=== PATIENT | male | born 1990 | race Caucasian/White ===

== ENCOUNTER 2016-07-16 20:15 | Inpatient (IN) | payer OTHER ==
[2016-07-16] MEDS ORDERED: ACETAMINOPHEN 325 MG TABLET PO ONE (21:14)
--- NOTE | 2016-07-16 21:17 | ER Document Report ---
ED Medical Screen (RME) - General Stated Complaint: LOWER BACK PAIN Mode of Arrival: Ambulatory Information source: Patient Notes: Patient has a tender red area swollen area to what pt describes as likely perineal raphe for the past 3 days. Patient with fever today. Patient denies any blood in the stool, abdominal pain or scrotal tenderness. hx: Diabetes I have greeted and performed a rapid initial assessment of this patient. A comprehensive ED assessment and evaluation of the patient, analysis of test results and completion of the medical decision making process will be conducted by additional ED providers. TRAVEL OUTSIDE OF THE [place] IN LAST 30 DAYS: No - Related Data Allergies/Adverse Reactions: No Known Allergies Allergy (Unverified 07/16/16 21:11) Physical Exam - Vital signs Vitals: Temp Pulse Resp BP Pulse Ox 102.6 F H 131 H 18 130/68 H 97 07/16/16 20:58 07/16/16 20:58 07/16/16 20:58 07/16/16 20:58 07/16/16 20:58 - Cardiovascular Rhythm: Tachycardia Heart sounds: S1 appreciated Murmur: No Course - Vital Signs Vital signs: Temp Pulse Resp BP Pulse Ox 102.6 F H 131 H 18 130/68 H 97 07/16/16 20:58 07/16/16 20:58 07/16/16 20:58 07/16/16 20:58 07/16/16 20:58
[2016-07-16] MEDS ORDERED: PIPERACILLIN/TAZOBACTAM 3.375 GM VIAL IV ONE (22:42)
[2016-07-16] MEDS ORDERED: VANCOMYCIN HCL INJ 1000 MG VIAL IV ONE (22:43)
[2016-07-16] MEDS ORDERED: NORMAL SALINE 1000 ML 1,000 ML IV ONE (22:46)
--- NOTE | 2016-07-16 22:50 | ER Document Report ---
ED General - General Chief Complaint: Abscess Stated Complaint: LOWER BACK PAIN Mode of Arrival: Ambulatory Notes: Patient is a 26 show male presents for complaint of redness and swelling to the perineal region with redness and swelling going into the scrotal sac. No history of anal intercourse. He did start having fevers today. He first noticed a little bit of redness on Tuesday. Last oral intake was at 2 PM. He denies history of anal intercourse. He is a type II diabetic. TRAVEL OUTSIDE OF THE [place] IN LAST 30 DAYS: No - Related Data Allergies/Adverse Reactions: No Known Allergies Allergy (Unverified 07/16/16 21:11) Past Medical History - General Information source: Patient - Social History Smoking Status: Current Every Day Smoker Frequency of alcohol use: None Drug Abuse: None Family History: Reviewed & Not Pertinent Renal/ Medical History: Denies: Hx Peritoneal Dialysis Review of Systems - Review of Systems Notes: My Normal Review Basic REVIEW OF SYSTEMS: CONSTITUTIONAL : Fever RESPIRATORY: Denies cough, cold, or chest congestion. Denies shortness of breath, difficulty breathing, or wheezing. GASTROINTESTINAL: Denies abdominal pain. Denies nausea, vomiting, or diarrhea. Denies constipation. Last BM: GENITOURINARY: Redness and swelling to the perineal general area. MUSCULOSKELETAL: Denies neck or back pain or joint pain or swelling. SKIN: Denies rash or skin lesions. NEUROLOGICAL: Denies altered mental status or loss of consciousness. Denies headache. Denies weakness or paralysis or loss of use of either side. Denies problems with gait or speech. Denies sensory or motor loss. ALL OTHER SYSTEMS REVIEWED AND NEGATIVE. Physical Exam - Vital signs Vitals: Temp Pulse Resp BP Pulse Ox 102.6 F H 131 H 18 130/68 H 97 07/16/16 20:58 07/16/16 20:58 07/16/16 20:58 07/16/16 20:58 07/16/16 20:58 - Notes Notes: General Appearance: Well nourished, alert, cooperative, no acute distress, mild to moderate obvious discomfort. Vitals: reviewed, See vital signs table. Head: no swelling or tenderness to the head Eyes: PERRL, EOMI, Conjuctiva clear Mouth: No decreasd moisture Lungs: No wheezing, No rales, No rhonci, No accessory muscle use, good air exchange bilaterally. Heart: Tachycardic rate, Regular rythm, No murmur, no rub Abdomen: Normal BS, soft, No rigidity, No abdominal tenderness, No guarding, no rebound, no abdominal masses, no organomegaly Genital: Very large swollen red area to the perineal area consistent with a large perineal abscess. Redness extending into the scrotal sac causing swelling to the scrotal sac. No swelling and penile shaft. The swelling into this pubic suprapubic area. No crepitus to palpation Extremities: strength 5/5 in all extremities, good pulses in all extremities, no swelling or tenderness in the extremities, no edema. Skin: warm, dry, appropriate color, no rash Neuro: speech clear, oriented x 3, normal affect, responds appropriately to questions. Course - Re-evaluation Re-evalutation: 07/16/16 22:46 Immediately after seeing the patient I called the general surgeon, Dr. Tang, who agrees to come to the patient immediately and most likely taken to the operating room for surgical intervention. Patient informed of plan he is able to. Patient's last oral intake was around 2 PM. Patient is nothing by mouth. An approximate ordered. Nursing staff made aware. - Vital Signs Vital signs: Temp Pulse Resp BP Pulse Ox 102.6 F H 131 H 18 130/68 H 97 07/16/16 20:58 07/16/16 20:58 07/16/16 20:58 07/16/16 20:58 07/16/16 20:58 Discharge - Discharge Clinical Impression: Abscess of perineum Condition: Stable Disposition: ADMITTED INPATIENT Admitting Provider: Surgicalist Unit Admitted: OR
[2016-07-16] MEDS ORDERED: LIDOCAINE 2% INJ-PF (20 MG/ML) 10 ML AMPUL ONE (23:14)
[2016-07-16] MEDS ORDERED: DEXAMETHASONE SOD PHOSPHATE INJ 4 MG/1 ML VIAL ONE (23:14)
[2016-07-16] MEDS ORDERED: HYDROMORPHONE HCL INJ/PF 2 MG/ML AMPULE ONE (23:14)
[2016-07-16] MEDS ORDERED: MIDAZOLAM 2 MG/2 ML INJ ONE (23:14)
[2016-07-16] MEDS ORDERED: ONDANSETRON HCL INJ/PF 4 MG/2 ML SDV ONE (23:14)
[2016-07-16] MEDS ORDERED: PROPOFOL INJ 200 MG/20 ML VIAL IV ONE (23:15)
[2016-07-16] MEDS ORDERED: ACETAMINOPHEN 100 ML IV ONE (23:15)
[2016-07-16 23:23] LABS: VENOUS BLOOD BASE EXCESS -0.3 mmol/L; VENOUS BLOOD HCO3 22.9 mmol/L (20-32); VENOUS BLOOD PCO2 33.5 mmHg (35-63); VENOUS BLOOD PH 7.45 (7.30-7.42)
[2016-07-16 23:32] LABS: PROTHROMBIN TIME 14.9 SEC (11.4-15.4)
[2016-07-16 23:36] LABS: ALANINE AMINOTRANSFERASE 33 U/L (21-72); ALBUMIN 3.9 g/dL (3.5-5.0); ALKALINE PHOSPHATASE 96 U/L (38-126); ANION GAP 15 (5-19); ASPARTATE AMINO TRANSFERASE 24 U/L (17-59); BILIRUBIN,TOTAL 1.5 mg/dL (0.2-1.3); BLOOD UREA NITROGEN 9 mg/dL (7-20); CALCIUM 9.5 mg/dL (8.4-10.2); CARBON DIOXIDE 22 mmol/L (22-30); CHLORIDE 92 mmol/L (98-107); CREATININE RESULT 0.63 mg/dL (0.52-1.25); SODIUM 128.6 mmol/L (137-145); TOTAL PROTEIN 7.1 g/dL (6.3-8.2)
[2016-07-16 23:49] LABS: GLUCOSE 442 mg/dL (75-110)
[2016-07-16 23:51] LABS: HEMATOCRIT 42.3 % (37.9-51.0); HEMOGLOBIN 14.6 g/dL (13.5-17.0); HGB HCT DIFFERENCE 1.5; MEAN CORPUSCULAR HEMOGLOBIN 30.6 pg (27.0-33.4); MEAN CORPUSCULAR HGB CONC 34.5 g/dL (32.0-36.0); MEAN CORPUSCULAR VOLUME 89 fl (80-97); RED BLOOD COUNT 4.77 10^6/uL (4.35-5.55); RED CELL DISTRIBUTION WIDTH 13.2 % (11.5-14.0)
[2016-07-16 23:56] LABS: BAND NEUTROPHILS % (MANUAL) 5 % (3-5); BASOPHILS % (MANUAL) 0 % (0-2); EOSINOPHILS % (MANUAL) 0 % (0-6); LYMPHOCYTES % (MANUAL) 12 % (13-45); TOTAL CELLS COUNTED 100; TOXIC GRANULATION 1+; TOXIC VACUOLATION PRESENT
[2016-07-16 23:57] LABS: OVALOCYTES SLIGHT; POIKILOCYTOSIS SLIGHT; POLYCHROMASIA SLIGHT; ROULEAUX SLIGHT
[2016-07-17] MEDS ORDERED: INSULIN REG, HUMAN 100 UNIT/ML 3 ML VIAL (PYX) ONE ×2 (00:06→05:30)
[2016-07-17] MEDS ORDERED: ONDANSETRON HCL INJ/PF 4 MG/2 ML SDV IV PRN (00:37)
[2016-07-17] MEDS ORDERED: PROMETHAZINE HCL INJ 25 MG/1 ML VIAL IV PRN ×2 (00:37)
[2016-07-17] MEDS ORDERED: MORPHINE SULFATE 10 MG/ML INJ IV PRN (00:37)
[2016-07-17] MEDS ORDERED: FENTANYL CITRATE INJ/PF 100 MCG/2 ML AMPUL IV PRN ×3 (00:37)
[2016-07-17] MEDS ORDERED: MEPERIDINE HCL/PF INJ 25 MG/1 ML DISP.SYRIN IV PRN (00:37)
[2016-07-17] MEDS ORDERED: OXYCODONE-ACETAMINOPHEN 5-325 MG TABLET PO PRN ×2 (00:37)
[2016-07-17] MEDS ORDERED: DIPHENHYDRAMINE HCL 50 MG/ML VIAL IV PRN (00:37)
--- NOTE | 2016-07-17 02:28 | OPERATIVE REPORT E ---
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 PREOPERATIVE DIAGNOSIS: Severe perineal necrotizing infection with a large perineal abscess. POSTOPERATIVE DIAGNOSIS: Necrotizing perineal soft tissue infection with perineal abscess. OPERATION: Incision and drainage of the large perineal abscess with debridement of necrotic tissue in the perineum, sparing the sphincter muscles. SURGEON: PIETER MILLER M.D. ANESTHESIA: General. ESTIMATED BLOOD LOSS: None. HISTORY AND INDICATION: The patient is a 26-year-old male presented to the emergency room with history of several days of increasing pain and swelling in the perineal area and he is also diabetic with uncontrolled blood sugar. History and indication is as described. DESCRIPTION OF PROCEDURE: The patient was placed in the Trendelenburg position. The perianal area was cleaned and draped as a sterile field. He was given intravenous therapeutic antibiotics. He was given insulin to regulate his blood sugar, which was 400+ and after keeping the patient in the lithotomy position, area was cleaned and draped and then 2 counter incisions were made in the perineum, one on the left lateral, other one on the right lateral, approximately 3 cm away from the anal verge, sparing the sphincter muscles completely and the large abscess cavity predominantly on the left side was drained. Copious amount of pus was drained along with that all the gas bubbles encountered as part of the gas gangrene and the surrounding necrotic adipose tissue was debrided until the wound was looking healthier and then entire wound was irrigated copiously with a counter incision on the right side of perineum made, through which a Marisa drain was placed. Wound was copiously irrigated until the effluent was clear and then dressings were applied. Patient was stable throughout the operation, recovered without any problem. Still there was , but relatively much stable. We will admit him to ICU monitored unit for close monitoring of blood sugar management. He will have a medical consult for diabetes medical management. DICTATING PHYSICIAN: PIETER MILLER M.D. [id number] PHY#: [id number] ID: [id number] JOB#: [id number] ACCT: [id number] cc:PIETER MILLER M.D. > PARAMJIT
[2016-07-17] MEDS ORDERED: HYDROMORPHONE HCL INJ/PF 2 MG/ML AMPULE IV PRN (02:29)
[2016-07-17] MEDS ORDERED: PIPERACILLIN/TAZOBACTAM 3.375 GM VIAL IV SCH (02:30)
[2016-07-17] MEDS ORDERED: ACETAMINOPHEN 325 MG TABLET PO PRN (02:33)
--- NOTE | 2016-07-17 03:03 | HISTORY AND PHYSICAL E ---
History and Physical NAME: NIKKI PECK : 1990 AGE: 26Y ADMITTED: 07/16/2016 ROOM: ED02 HISTORY OF PRESENT ILLNESS: The patient is presenting with a history of acute onset of severe pain in the perineum area almost like a week's duration and for the last 1 week, he has been developing increasing swelling and pain and came to emergency room today. No history of perirectal abscess in the past. He denies any urinary symptoms in the past. PAST MEDICAL HISTORY: Positive for diabetes, on metformin. FAMILY HISTORY: Nothing relevant. PERSONAL HISTORY: Occasional smoker. No alcohol abuse. PHYSICAL EXAMINATION: General: He does look sick with hydration. HEENT: No icterus. Head and neck examination, no lymphadenopathy. No masses. RESPIRATORY EXAMINATION: Both lungs are clear to auscultation. CARDIOVASCULAR EXAMINATION: Heart sounds are regular. No murmurs or gallops. ABDOMINAL EXAMINATION: Soft and nontender. No mass palpable. No hernia. EXTREMITIES: Warm and well perfused. PERINEAL EXAMINATION: There is a gross amount of scrotal edema on the perineum anterior perirectal area with large amount of induration, swelling, pain, and some degree of fluctuance present. IMPRESSION: Overall, he has a large perirectal abscess and perineal cellulitis. In setting of diabetes, we probably have necrotizing soft tissue infection. PLAN: IV antibiotics started instantly right away and then plan for emergency dbridement and incision and drainage. The patient and the patient's family were explained about indications of the procedure and the possibility of the recurrent abscesses, need for the repeat operation, long time for wound heal, and pain. All these issues explained. They understand and agree with plan of management. DICTATING PHYSICIAN: PIETER MILLER M.D. [id number] PHY#: [id number] ID: [id number] JOB#: [id number] ACCT: [id number] cc:NO Gian SHEN
[2016-07-17 04:00] LABS: HEMATOCRIT 40.4 % (37.9-51.0); HEMOGLOBIN 13.9 g/dL (13.5-17.0); HGB HCT DIFFERENCE 1.3; MEAN CORPUSCULAR HEMOGLOBIN 30.8 pg (27.0-33.4); MEAN CORPUSCULAR HGB CONC 34.4 g/dL (32.0-36.0); MEAN CORPUSCULAR VOLUME 89 fl (80-97); RED BLOOD COUNT 4.52 10^6/uL (4.35-5.55); RED CELL DISTRIBUTION WIDTH 13.1 % (11.5-14.0); WHITE BLOOD COUNT 17.2 10^3/uL (4.0-10.5)
[2016-07-17 04:03] LABS: ANION GAP 16 (5-19); BLOOD UREA NITROGEN 10 mg/dL (7-20); CALCIUM 8.8 mg/dL (8.4-10.2); CARBON DIOXIDE 19 mmol/L (22-30); CHLORIDE 97 mmol/L (98-107); CREATININE RESULT 0.69 mg/dL (0.52-1.25); POTASSIUM 4.6 mmol/L (3.6-5.0); SODIUM 132.3 mmol/L (137-145)
[2016-07-17 04:21] LABS: GLUCOSE 459 mg/dL (75-110)
[2016-07-17 04:29] LABS: BAND NEUTROPHILS % (MANUAL) 7 % (3-5); BASOPHILS % (MANUAL) 0 % (0-2); EOSINOPHILS % (MANUAL) 0 % (0-6); LYMPHOCYTES % (MANUAL) 12 % (13-45); POIKILOCYTOSIS SLIGHT; POLYCHROMASIA SLIGHT; TOTAL CELLS COUNTED 100; TOXIC GRANULATION SLIGHT
[2016-07-17 04:30] LABS: OVALOCYTES SLIGHT; ROULEAUX SLIGHT
[2016-07-17] MEDS ORDERED: DEXTROSE 40% GEL 15 GM TUBE PO PRN (05:37)
[2016-07-17] MEDS ORDERED: INSULIN REG, HUMAN 100 UNIT/ML 3 ML VIAL (PYX) SUBCUT PRN (05:37)
[2016-07-17] MEDS ORDERED: DEXTROSE 40% GEL 15 GM TUBE X 2 PO PRN (05:37)
[2016-07-17] MEDS ORDERED: DEXTROSE 50%-WATER SYRINGE 25 GM/50 ML DOSE IV PRN (05:37)
[2016-07-17] MEDS ORDERED: GLUCAGON,HUMAN RECOMB 1 MG INJ IM PRN (05:37)
[2016-07-17] MEDS ORDERED: DEXTROSE 50%-WATER SYRINGE 12.5 GM/25 ML DOSE IV PRN (05:37)
[2016-07-17] MEDS: OXYCODONE HCL IR 5 MG TABLET PO PRN ×2 (05:44→11:19)
[2016-07-17] MEDS ORDERED: PIPERACILLIN/TAZOBACTAM 3.375 GM VIAL IV ONE (05:54)
[2016-07-17 06:22] LABS: APPEARANCE,URINE CLEAR; BILIRUBIN,URINE NEGATIVE (NEGATIVE); GLUCOSE, URINE >=500 mg/dL (NEGATIVE); KETONES,URINE 20 mg/dL (NEGATIVE); LEUKOCYTE ESTERASE,URINE NEGATIVE (NEGATIVE); NITRITE,URINE NEGATIVE (NEGATIVE); PROTEIN,URINE 100 mg/dL (NEGATIVE); URINE SPECIFIC GRAVITY 1.031; UROBILINOGEN,URINE NEGATIVE mg/dL (<2.0)
[2016-07-17] MEDS: PIPERACILLIN SODIUM/TAZOBACTAM 3.375 GM in NORMAL SALINE 100 ML IV SCH ×2 (06:34→14:43)
[2016-07-17] MEDS: INSULIN REG, HUMAN 100 UNIT/ML 3 ML VIAL (PYX) SUBCUT PRN ×3 (06:48→17:11)
[2016-07-17] MEDS ORDERED: SUCCINYLCHOLINE CHLORIDE INJ 200 MG/10 ML VIAL ONE (11:29)
[2016-07-17] MEDS ORDERED: GLIMEPIRIDE 1 MG TABLET PO ONE (11:34)
--- NOTE | 2016-07-17 13:11 | PDOC PROGRESS REPORT ---
Subjective Progress Note for:: 07/17/16 Subjective:: feeling better Physical Exam Vital Signs: Temp Pulse Resp BP Pulse Ox 97.8 F 91 16 126/68 H 96 07/17/16 07:52 07/17/16 07:52 07/17/16 07:52 07/17/16 07:52 07/17/16 07:52 Intake & Output 07/16/16 07/17/16 07/18/16 06:59 06:59 06:59 Intake Total 240 Output Total 1800 Balance -1560 Weight 137.2 kg Rectal exam: PRESENT: other - perineal wound clean Results Laboratory Results: 07/17/16 03:38 07/17/16 03:38 07/17/16 07/17/16 07/17/16 03:38 03:38 03:38 WBC 17.2 H RBC 4.52 Hgb 13.9 Hct 40.4 MCV 89 MCH 30.8 MCHC 34.4 RDW 13.1 Plt Count 201 Seg Neutrophils % Not Reportable Lymphocytes % Not Reportable Monocytes % Not Reportable Eosinophils % Not Reportable Basophils % Not Reportable Absolute Neutrophils Not Reportable Absolute Lymphocytes Not Reportable Absolute Monocytes Not Reportable Absolute Eosinophils Not Reportable Absolute Basophils Not Reportable Sodium 132.3 L Potassium 4.6 Chloride 97 L Carbon Dioxide 19 L Anion Gap 16 BUN 10 Creatinine 0.69 Est GFR ( Amer) > 60 Est GFR (Non-Af Amer) > 60 Glucose 459 H* Lactic Acid 1.3 Calcium 8.8 Urine Color Urine Appearance Urine pH Ur Specific [place] Urine Protein Urine Glucose (UA) Urine Ketones Urine Blood Urine Nitrite Ur Leukocyte Esterase Urine WBC (Auto) Urine RBC (Auto) 07/17/16 05:40 WBC RBC Hgb Hct MCV MCH MCHC RDW Plt Count Seg Neutrophils % Lymphocytes % Monocytes % Eosinophils % Basophils % Absolute Neutrophils Absolute Lymphocytes Absolute Monocytes Absolute Eosinophils Absolute Basophils Sodium Potassium Chloride Carbon Dioxide Anion Gap BUN Creatinine Est GFR ( Amer) Est GFR (Non-Af Amer) Glucose Lactic Acid Calcium Urine Color YELLOW Urine Appearance CLEAR Urine pH 5.0 Ur Specific [place] 1.031 Urine Protein 100 H Urine Glucose (UA) >=500 H Urine Ketones 20 H Urine Blood SMALL H Urine Nitrite NEGATIVE Ur Leukocyte Esterase NEGATIVE Urine WBC (Auto) 1 Urine RBC (Auto) 1 Assessment & Plan - Plan Summary Plan Summary: Continue IV ABX Diabetes management.
--- NOTE | 2016-07-17 13:33 | PDOC CONSULTATION ---
Consultation Consult Date: 07/17/16 Attending physician:: SURGICAL SURGICALIST Consult reason:: To aid and diabetes management History of Present Illness Admission Date/PCP: 07/17/16 02:09 Patient complains of: Anal pain History of Present Illness: NIKKI PECK is a 26 year old past medical history of diabetes mellitus type II that presented to the emergency department with a complaint of redness and swelling to the perineal region with redness and swelling going into the scrotal sac. No history of anal intercourse. He did start having fevers today. He first noticed a little bit of redness on Tuesday. Last oral intake was at 2 PM. He is a type II diabetic. Patient was admitted to the surgical service and was taken to the OR. The patient's blood sugars have been very difficult to control since admission in the hospitalists have been consult did to aid in the management. Upon discussion with the patient he states that he is compliant with his metformin on the patient states that he only has a few pills left over the end of the month and therefore typically takes it. Shouldn't does not invest in much diet discretion however he states he takes his medications. The patient is leery of insulin however the patient's been placed on sliding scale for now. 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 Lives with: Family Smoking Status: Never Smoker Frequency of Alcohol Use: Rare Hx Recreational Drug Use: No Drugs: None Hx Prescription Drug Abuse: No - Advance Directive Resuscitation Status: Full Code Surrogate healthcare decision maker:: Rajat Gore his father Family History Family History: Reviewed & Not Pertinent Parental Family History Reviewed: Yes Children Family History Reviewed: Yes Sibling(s) Family History Reviewed.: Yes Medication/Allergy Home Medications: Metformin HCl 1,000 mg PO BID 07/16/16 Allergies/Adverse Reactions: No Known Allergies Allergy (Unverified 07/16/16 21:11) Review of Systems Constitutional: ABSENT: chills, fever(s), headache(s), weight gain, weight loss Eyes: ABSENT: visual disturbances Ears: ABSENT: hearing changes Cardiovascular: ABSENT: chest pain, dyspnea on exertion, edema, orthropnea, palpitations Respiratory: ABSENT: cough, hemoptysis Gastrointestinal: ABSENT: abdominal pain, constipation, diarrhea, hematemesis, hematochezia, nausea, vomiting Genitourinary: ABSENT: dysuria, hematuria Musculoskeletal: ABSENT: joint swelling Integumentary: ABSENT: rash, wounds Neurological: ABSENT: abnormal gait, abnormal speech, confusion, dizziness, focal weakness, syncope Psychiatric: ABSENT: anxiety, depression, homidical ideation, suicidal ideation Endocrine: ABSENT: cold intolerance, heat intolerance, polydipsia, polyuria Hematologic/Lymphatic: ABSENT: easy bleeding, easy bruising Physical Exam Vital Signs: Temp Pulse Resp BP Pulse Ox 97.8 F 91 16 126/68 H 96 07/17/16 07:52 07/17/16 07:52 07/17/16 07:52 07/17/16 07:52 07/17/16 07:52 Intake & Output 07/15/16 07/16/16 07/17/16 23:59 23:59 23:59 Intake Total 240 Output Total 1800 Balance -1560 Weight 137.2 kg General appearance: PRESENT: no acute distress, cooperative, well-developed, well-nourished Head exam: PRESENT: atraumatic, normocephalic Eye exam: PRESENT: conjunctiva pink, EOMI, PERRLA. ABSENT: scleral icterus Ear exam: PRESENT: normal external ear exam Mouth exam: PRESENT: moist, tongue midline Neck exam: ABSENT: carotid bruit, JVD, lymphadenopathy, thyromegaly Respiratory exam: PRESENT: clear to auscultation tc, symmetrical, unlabored. ABSENT: rales, rhonchi, tachypnea, wheezes Cardiovascular exam: PRESENT: RRR. ABSENT: diastolic murmur, rubs, systolic murmur Pulses: PRESENT: normal dorsalis pedis pul Vascular exam: PRESENT: normal capillary refill GI/Abdominal exam: PRESENT: normal bowel sounds, soft. ABSENT: distended, guarding, mass, organolmegaly, rebound, tenderness Rectal exam: PRESENT: deferred Extremities exam: PRESENT: full ROM. ABSENT: calf tenderness, clubbing, pedal edema Neurological exam: PRESENT: alert, awake, oriented to person, oriented to place , oriented to time, oriented to situation, CN II-XII grossly intact. ABSENT: motor sensory deficit Psychiatric exam: PRESENT: appropriate affect, normal mood. ABSENT: homicidal ideation, suicidal ideation Skin exam: PRESENT: dry, intact, warm. ABSENT: cyanosis, rash Results Laboratory Results: 07/17/16 03:38 07/17/16 03:38 07/17/16 07/17/16 07/17/16 03:38 03:38 03:38 WBC 17.2 H RBC 4.52 Hgb 13.9 Hct 40.4 MCV 89 MCH 30.8 MCHC 34.4 RDW 13.1 Plt Count 201 Seg Neutrophils % Not Reportable Lymphocytes % Not Reportable Monocytes % Not Reportable Eosinophils % Not Reportable Basophils % Not Reportable Absolute Neutrophils Not Reportable Absolute Lymphocytes Not Reportable Absolute Monocytes Not Reportable Absolute Eosinophils Not Reportable Absolute Basophils Not Reportable Sodium 132.3 L Potassium 4.6 Chloride 97 L Carbon Dioxide 19 L Anion Gap 16 BUN 10 Creatinine 0.69 Est GFR ( Amer) > 60 Est GFR (Non-Af Amer) > 60 Glucose 459 H* Lactic Acid 1.3 Calcium 8.8 Urine Color Urine Appearance Urine pH Ur Specific [place] Urine Protein Urine Glucose (UA) Urine Ketones Urine Blood Urine Nitrite Ur Leukocyte Esterase Urine WBC (Auto) Urine RBC (Auto) 07/17/16 05:40 WBC RBC Hgb Hct MCV MCH MCHC RDW Plt Count Seg Neutrophils % Lymphocytes % Monocytes % Eosinophils % Basophils % Absolute Neutrophils Absolute Lymphocytes Absolute Monocytes Absolute Eosinophils Absolute Basophils Sodium Potassium Chloride Carbon Dioxide Anion Gap BUN Creatinine Est GFR ( Amer) Est GFR (Non-Af Amer) Glucose Lactic Acid Calcium Urine Color YELLOW Urine Appearance CLEAR Urine pH 5.0 Ur Specific [place] 1.031 Urine Protein 100 H Urine Glucose (UA) >=500 H Urine Ketones 20 H Urine Blood SMALL H Urine Nitrite NEGATIVE Ur Leukocyte Esterase NEGATIVE Urine WBC (Auto) 1 Urine RBC (Auto) 1 Assessment & Plan - Diagnosis (1) Diabetes mellitus type 2 in obese Is this a current diagnosis for this admission?: YesPlan: Continues on scale coverage. Will resume the patient's metformin. Will add Amaryl. As likely the patient will require basal dose insulin. (2) Perineal abscess Is this a current diagnosis for this admission?: YesPlan: Management as per surgery - Time Time Spent: 50 to 70 Minutes Medications reviewed and adjusted accordingly: Yes Anticipated discharge: Home Within: within 24 hours, within 48 hours
[2016-07-17] MEDS: NORMAL SALINE 1000 ML 1,000 ML IV PRN (14:44)
[2016-07-17] MEDS ORDERED: NORMAL SALINE 1000 ML 1,000 ML IV ONE (15:00)
[2016-07-17] MEDS: METFORMIN HCL 500 MG TABLET PO SCH (16:35)
[2016-07-17] MEDS: GLIMEPIRIDE 4 MG TABLET PO SCH (16:36)
[2016-07-17] MEDS ORDERED: INSULIN REG, HUMAN 100 UNIT/ML 3 ML VIAL (PYX) IV ONE (16:55)
--- NOTE | 2016-07-17 19:30 | EKG REPORT ---
SEVERITY:- NORMAL ECG - SINUS RHYTHM : Confirmed by: Anna Kim MD 17-Jul-2016 19:29:09
[2016-07-18] MEDS: NORMAL SALINE 1000 ML 1,000 ML IV PRN ×2 (00:05→20:34)
[2016-07-18] MEDS: PIPERACILLIN SODIUM/TAZOBACTAM 3.375 GM in NORMAL SALINE 100 ML IV SCH ×4 (00:07→22:36)
[2016-07-18] MEDS: INSULIN REG, HUMAN 100 UNIT/ML 3 ML VIAL (PYX) SUBCUT PRN ×2 (00:09→07:01)
[2016-07-18] MEDS: OXYCODONE HCL IR 5 MG TABLET PO PRN ×2 (01:23→08:14)
[2016-07-18 04:49] LABS: ABSOLUTE LYMPHOCYTES (AUTO) 1.8 10^3/uL (0.5-4.7); ABSOLUTE MONOCYTES (AUTO) 0.9 10^3/uL (0.1-1.4); ABSOLUTE NEUT (AUTO) 11.3 10^3/uL (1.7-8.2); BASOPHILS % (AUTO) 0.1 % (0-2); HEMATOCRIT 37.1 % (37.9-51.0); HEMOGLOBIN 12.9 g/dL (13.5-17.0); HGB HCT DIFFERENCE 1.6; LYMPHOCYTES % (AUTO) 12.7 % (13-45); MEAN CORPUSCULAR HEMOGLOBIN 31.1 pg (27.0-33.4); MEAN CORPUSCULAR HGB CONC 34.7 g/dL (32.0-36.0); MEAN CORPUSCULAR VOLUME 90 fl (80-97); MONOCYTES % (AUTO) 6.2 % (3-13); RED BLOOD COUNT 4.14 10^6/uL (4.35-5.55); RED CELL DISTRIBUTION WIDTH 13.3 % (11.5-14.0)
[2016-07-18 04:51] LABS: ANION GAP 15 (5-19); BLOOD UREA NITROGEN 13 mg/dL (7-20); CALCIUM 8.9 mg/dL (8.4-10.2); CARBON DIOXIDE 19 mmol/L (22-30); CHLORIDE 98 mmol/L (98-107); CREATININE RESULT 0.48 mg/dL (0.52-1.25); GLUCOSE 302 mg/dL (75-110); MAGNESIUM 1.9 mg/dL (1.6-2.3); POTASSIUM 4.4 mmol/L (3.6-5.0); SODIUM 132.4 mmol/L (137-145)
[2016-07-18] MEDS: GLIMEPIRIDE 4 MG TABLET PO SCH ×2 (07:03→16:50)
[2016-07-18] MEDS: METFORMIN HCL 500 MG TABLET PO SCH ×2 (07:03→16:50)
[2016-07-18] MEDS ORDERED: NORMAL SALINE 1000 ML 1,000 ML IV ONE (11:00)
--- NOTE | 2016-07-18 11:28 | PDOC PROGRESS REPORT ---
Subjective Progress Note for:: 07/18/16 Subjective:: The patient states he is feeling better. The patient continued to have elevated sugars. Still reluctant to consider injectable insulin. Physical Exam Vital Signs: Temp Pulse Resp BP Pulse Ox 97.8 F 83 16 124/79 97 07/18/16 07:44 07/18/16 07:44 07/18/16 07:44 07/18/16 07:44 07/18/16 07:44 Intake & Output 07/16/16 07/17/16 07/18/16 23:59 23:59 23:59 Intake Total 2962 1300 Output Total 5800 2000 Balance -0184 -700 Weight 137.2 kg General appearance: PRESENT: no acute distress, cooperative, well-developed, well-nourished Head exam: PRESENT: atraumatic, normocephalic Eye exam: PRESENT: conjunctiva pink, EOMI, PERRLA. ABSENT: scleral icterus Ear exam: PRESENT: normal external ear exam Mouth exam: PRESENT: moist, tongue midline Neck exam: ABSENT: carotid bruit, JVD, lymphadenopathy, thyromegaly Respiratory exam: PRESENT: clear to auscultation tc, symmetrical, unlabored. ABSENT: rales, rhonchi, tachypnea, wheezes Cardiovascular exam: PRESENT: RRR. ABSENT: diastolic murmur, rubs, systolic murmur Pulses: PRESENT: normal dorsalis pedis pul Vascular exam: PRESENT: normal capillary refill GI/Abdominal exam: PRESENT: normal bowel sounds, soft. ABSENT: distended, guarding, mass, organolmegaly, rebound, tenderness Rectal exam: PRESENT: deferred Extremities exam: PRESENT: full ROM. ABSENT: calf tenderness, clubbing, pedal edema Neurological exam: PRESENT: alert, awake, oriented to person, oriented to place , oriented to time, oriented to situation, CN II-XII grossly intact. ABSENT: motor sensory deficit Psychiatric exam: PRESENT: appropriate affect, normal mood. ABSENT: homicidal ideation, suicidal ideation Skin exam: PRESENT: dry, intact, warm. ABSENT: cyanosis, rash Results Laboratory Results: 07/18/16 04:08 07/18/16 04:08 07/18/16 07/18/16 04:08 04:08 WBC 14.0 H RBC 4.14 L Hgb 12.9 L Hct 37.1 L MCV 90 MCH 31.1 MCHC 34.7 RDW 13.3 Plt Count 203 Seg Neutrophils % 81.0 H Lymphocytes % 12.7 L Monocytes % 6.2 Eosinophils % 0.0 Basophils % 0.1 Absolute Neutrophils 11.3 H Absolute Lymphocytes 1.8 Absolute Monocytes 0.9 Absolute Eosinophils 0.0 Absolute Basophils 0.0 Sodium 132.4 L Potassium 4.4 Chloride 98 Carbon Dioxide 19 L Anion Gap 15 BUN 13 Creatinine 0.48 L Est GFR ( Amer) > 60 Est GFR (Non-Af Amer) > 60 Glucose 302 H Calcium 8.9 Magnesium 1.9 Assessment & Plan - Diagnosis (1) Diabetes mellitus type 2 in obese Is this a current diagnosis for this admission?: YesPlan: Continues on scale coverage. Continue metformin. Added Amaryl. Will give another bolus. As likely the patient will require basal dose insulin. (2) Perineal abscess Is this a current diagnosis for this admission?: YesPlan: Management as per surgery - Time Time Spent with patient: 25-34 minutes Medications reviewed and adjusted accordingly: Yes Anticipated discharge: Home
[2016-07-18] MEDS: INSULIN LISPRO 100 UNIT/ML 3 ML VIAL SUBCUT PRN ×3 (12:32→22:37)
--- NOTE | 2016-07-18 13:56 | PDOC PROGRESS REPORT ---
Subjective Progress Note for:: 07/18/16 Physical Exam Vital Signs: Temp Pulse Resp BP Pulse Ox 97.6 F 83 16 119/74 96 07/18/16 12:57 07/18/16 12:57 07/18/16 12:57 07/18/16 12:57 07/18/16 12:57 Intake & Output 07/17/16 07/18/16 07/19/16 06:59 06:59 06:59 Intake Total 240 4022 222 Output Total 1800 6000 1500 Balance -1559 Weight 137.2 kg Results Laboratory Results: 07/18/16 04:08 07/18/16 04:08 07/18/16 07/18/16 04:08 04:08 WBC 14.0 H RBC 4.14 L Hgb 12.9 L Hct 37.1 L MCV 90 MCH 31.1 MCHC 34.7 RDW 13.3 Plt Count 203 Seg Neutrophils % 81.0 H Lymphocytes % 12.7 L Monocytes % 6.2 Eosinophils % 0.0 Basophils % 0.1 Absolute Neutrophils 11.3 H Absolute Lymphocytes 1.8 Absolute Monocytes 0.9 Absolute Eosinophils 0.0 Absolute Basophils 0.0 Sodium 132.4 L Potassium 4.4 Chloride 98 Carbon Dioxide 19 L Anion Gap 15 BUN 13 Creatinine 0.48 L Est GFR ( Amer) > 60 Est GFR (Non-Af Amer) > 60 Glucose 302 H Calcium 8.9 Magnesium 1.9 Assessment & Plan - Plan Summary Plan Summary: perineal swelling and cellulitis - resolved dc home when cleared by hospitalist.
--- NOTE | 2016-07-18 21:28 | DISCHARGE SUMMARY E ---
Discharge Summary NAME: NIKIK PECK : 1990 AGE: 26Y ADMITTED: 07/17/2016 DISCHARGED: 07/18/2016 ADMISSION DIAGNOSES: 1. Perineal cellulitis. 2. Large perineal and perirectal abscess. 3. Scrotal cellulitis. 4. Uncontrolled diabetes mellitus. DISCHARGE DIAGNOSES: 1. Perineal cellulitis. 2. Large perineal and perirectal abscess. 3. Scrotal cellulitis. 4. Uncontrolled diabetes mellitus. OPERATIONS: Incision and drainage of the perineal abscess and large perirectal abscess. HOSPITAL COURSE: The patient admitted to the hospital and underwent surgery. I performed the surgery and then wound has been monitoring. Cellulitis resolved. The wound is very clean now. I left a drain which was removed today. Wound examination, the wound is very healthy, minimal drainage, and cellulitis resolving. He is feeling well. The blood sugars are much better. So tomorrow as soon as the hospitalists have completed his diabetes management, he will be discharged and follow up plan in the office. I left a prescription for the pain medication, Percocet, and antibiotic for 1 more week, Augmentin. DICTATING PHYSICIAN: PIETER MILLER M.D. [id number] PHY#: [id number] ID: [id number] JOB#: [id number] ACCT: [id number] cc:PIETER MILLER M.D. [facility] >
[2016-07-18] MEDS ORDERED: INSULIN GLARGINE,HUM.REC.ANLOG 300 UNIT/3 ML INSULN.PEN SUBCUT SCH (22:00)
[2016-07-19] MEDS: OXYCODONE HCL IR 5 MG TABLET PO PRN ×2 (00:55→10:19)
[2016-07-19 05:20] LABS: HEMATOCRIT 35.2 % (37.9-51.0); HEMOGLOBIN 12.1 g/dL (13.5-17.0); HGB HCT DIFFERENCE 1.1; MEAN CORPUSCULAR HEMOGLOBIN 30.7 pg (27.0-33.4); MEAN CORPUSCULAR HGB CONC 34.4 g/dL (32.0-36.0); MEAN CORPUSCULAR VOLUME 89 fl (80-97); RED BLOOD COUNT 3.94 10^6/uL (4.35-5.55); RED CELL DISTRIBUTION WIDTH 13.5 % (11.5-14.0); WHITE BLOOD COUNT 10.4 10^3/uL (4.0-10.5)
[2016-07-19 05:31] LABS: ANION GAP 11 (5-19); BLOOD UREA NITROGEN 16 mg/dL (7-20); CALCIUM 8.4 mg/dL (8.4-10.2); CARBON DIOXIDE 22 mmol/L (22-30); CHLORIDE 99 mmol/L (98-107); CREATININE RESULT 0.58 mg/dL (0.52-1.25); GLUCOSE 273 mg/dL (75-110); POTASSIUM 3.7 mmol/L (3.6-5.0); SODIUM 132.3 mmol/L (137-145)
[2016-07-19] MEDS: PIPERACILLIN SODIUM/TAZOBACTAM 3.375 GM in NORMAL SALINE 100 ML IV SCH ×2 (05:35→13:08)
[2016-07-19 06:11] LABS: BASOPHILS % (MANUAL) 0 % (0-2); EOSINOPHILS % (MANUAL) 1 % (0-6); LYMPHOCYTES % (MANUAL) 25 % (13-45); TOTAL CELLS COUNTED 100
[2016-07-19] MEDS: INSULIN LISPRO 100 UNIT/ML 3 ML VIAL SUBCUT PRN ×3 (07:52→16:30)
[2016-07-19] MEDS: GLIMEPIRIDE 4 MG TABLET PO SCH ×2 (07:54→16:31)
[2016-07-19] MEDS: METFORMIN HCL 500 MG TABLET PO SCH ×2 (07:54→16:31)
[2016-07-19 17:58] VITALS: BP 120/68
== END 2016-07-19 18:31 | disposition home or self-care (01) | DRG 581 ==
LOC: ER 20:15 → EH 23:04 → UNDOADMIN 23:04 → 3S 07-17 01:59 → EH 07-17 01:59 → 3S 07-17 02:09 → EH 07-17 02:09
PROVIDERS: ADMIT Colon & Rectal Surgery; ATTEND Colon & Rectal Surgery
PROC: 0H99XZZ Drainage of Perineum Skin, External Approach (ICD-10-PCS; principal; 2016-07-17 00:30)
DX: L02.215 Cutaneous abscess of perineum (principal); L03.315 Cellulitis of perineum; N49.2 Inflammatory disorders of scrotum; E11.65 Type 2 diabetes mellitus with hyperglycemia; E66.9 Obesity, unspecified; Z68.37 Body mass index [BMI] 37.0-37.9, adult; F17.210 Nicotine dependence, cigarettes, uncomplicated; Z79.899 Other long term (current) drug therapy
CPT/HCPCS: 36415; 80048; 80053; 81001; 82803; 82962; 83036; 83605; 83735; 85025; 85610; 87040; 87070; 87075; 87077; 87086; 87186; 87205; 902; 93005; 93010; 99285; J0131; J0330; J1100; J1170; J1815; J2250; J2405; J2543; J2704; J3490; J7030